=== PATIENT | male | born 1995 | race Caucasian/White ===

== ENCOUNTER → 2017-11-27 | Outpatient (CLI) | payer SELFPAY ==
[~2017-11-27] MED LIST: ALBU90OI61 INH; EAR WAX DROPS15 ML OT; FLUO.05TO TOP
[2017-11-27 15:01] LABS: Source, Urine Clean Catch; Specimen Source V
[2017-11-27 16:45] LABS: Bilirubin, Urine Neg (Neg); Blood, Urine Neg (Neg); Glucose Qualitative, Urine Neg (Neg); Ketones, Urine Neg (Neg); Leukocyte Esterase, Urine Neg (Neg); Nitrite, Urine Neg (Neg); Protein, Urine 1+ (Neg); Urobilinogen, Urine NORM (Normal); pH, Urine 6.5 (5.0-8.0)
[2017-11-27 17:12] LABS: Appearance, Urine Clear (Clear); Color, Urine Yellow (P-Yellow)
[2017-11-28 13:15] LABS: Source V disc only
== END ==
LOC: LAB SHORT 14:56 → LAB 14:56
PROVIDERS: Nurse Practitioner Family
DX: R30.0 Dysuria (principal)
CPT/HCPCS: 87491; 87591

== ENCOUNTER 2019-07-24 16:00 | Emergency (ER) | payer SELFPAY ==
[~2019-07-24] VITALS: Ht 170.2 cm; Wt 61.2 kg
== END 2019-07-24 17:24 | disposition home or self-care (01) ==
LOC: ER 16:00
DX: S00.81XA Abrasion of other part of head, initial encounter (principal); R45.1 Restlessness and agitation; X79.XXXA Intentional self-harm by blunt object, initial encounter; F41.9 Anxiety disorder, unspecified; Z87.891 Personal history of nicotine dependence
CPT/HCPCS: 90471; 90714; 99284-25